=== PATIENT | male | born 1980 | race Caucasian/White ===

== ENCOUNTER 2025-02-09 21:10 | Inpatient (IN) ==
[2025-02-09 21:56] VITALS: BMI 45.6
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
[2025-02-09 22:26] LABS: EOSINOPHILS # (AUTO) 0.2 x10^3/uL (0.0-0.2); LYMPHOCYTES # (AUTO) 2.3 X10^3/uL (1.3-2.9); MEAN PLATELET VOLUME 7.6 fL (7.4-11.0); MONOCYTES # (AUTO) 0.9 x10^3/uL (0.3-0.8); WHITE BLOOD COUNT 8.7 X10^3/uL (3.6-10.0)
[2025-02-09] MEDS ORDERED: MERREM VIAL 1 G in NS 100 ML IV 100 ML IV SCH (22:27)
[2025-02-09 22:29] LABS: BASOPHILS # (AUTO) 0.4 X10^3/uL (0.0-0.1); BASOPHILS % (AUTO) 4.4 % (0.2-1.0); EOSINOPHILS % (AUTO) 2.3 % (0.9-2.9); HEMATOCRIT 43.2 % (42.0-54.0); HEMOGLOBIN 14.3 g/dL (13.5-18.0); LYMPHOCYTES % (AUTO) 26.4 % (21.0-51.0); MEAN CORPUSCULAR HEMOGLOBIN 29.2 pg (27.0-34.0); MEAN CORPUSCULAR VOLUME 88.7 fL (80.0-100.0); MONOCYTES % (AUTO) 9.8 % (0.0-13.0); NEUTROPHILS % (AUTO) 57.1 % (42.0-75.0); PLATELET COUNT 610 X10^3/uL (150.0-450.0); RED BLOOD COUNT 4.87 X10^6/uL (4.7-6.0); RED CELL DISTRIBUTION WIDTH 15.5 % (11.6-16.5)
[2025-02-09 22:36] LABS: ALANINE AMINOTRANSFERASE 41 Units/L (12-78); ALKALINE PHOSPHATASE 92 Units/L (46-116); ASPARTATE AMINO TRANSFERASE 20 Units/L (15-37); BLOOD UREA NITROGEN 9 mg/dL (7-18); CARBON DIOXIDE 30.5 mmol/L (21-32); CHLORIDE 102 mmol/L (98-107); COR CA(FOR HYPOALB) 9.8 mg/dL (8.5-10.1); CREATININE 1.17 mg/dL (0.70-1.30); GLUCOSE 100 mg/dL (65-99); POTASSIUM 4.2 mmol/L (3.5-5.1); SODIUM 140 mmol/L (136-145); TOTAL PROTEIN 7.3 g/dL (6.4-8.2); eGFR NON BLACK RACES > 60 (>60)
[2025-02-09 23:00] LABS: PLATELET MORPHOLOGY COMMENT NORMAL (NORMAL)
[2025-02-09] MEDS: XYLOCAINE 1 % (PLAIN) IJ ONE (23:18)
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
[2025-02-10] MEDS: VANCOMYCIN IV *PREMIX 1 G/200 ML BAG 1 G/200 ML PIGGYBACK IV ONE (00:50)
[2025-02-10] MEDS ORDERED: MERREM VIAL 1 G in NS 100 ML IV 100 ML IV SCH (03:17)
[2025-02-10] MEDS ORDERED: CONSULT PHARMACY - POTASSIUM & MAGNESIUM XX SCH (03:17)
[2025-02-10] MEDS ORDERED: PHARMACY CONSULT - VANCOMYCIN XX SCH (03:17)
[2025-02-10] MEDS ORDERED: VANCOMYCIN IV *PREMIX 1 G/200 ML BAG 1 G/200 ML PIGGYBACK IV ONE (04:30)
[2025-02-10] MEDS: XYLOCAINE 1 % (PLAIN) ONE (04:30)
[2025-02-10] MEDS: MERREM VIAL 1 G in NS 100 ML IV 100 ML IV SCH (05:18)
[2025-02-10] MEDS: NS 250 ML IV 250 ML IV ONE (05:19)
[2025-02-10 05:53] LABS: BASOPHILS # (AUTO) 0.1 X10^3/uL (0.0-0.1); BASOPHILS % (AUTO) 1.4 % (0.2-1.0); EOSINOPHILS # (AUTO) 0.2 x10^3/uL (0.0-0.2); EOSINOPHILS % (AUTO) 2.3 % (0.9-2.9); HEMATOCRIT 41.8 % (42.0-54.0); HEMOGLOBIN 13.4 g/dL (13.5-18.0); LYMPHOCYTES # (AUTO) 2.4 X10^3/uL (1.3-2.9); LYMPHOCYTES % (AUTO) 24.9 % (21.0-51.0); MEAN CORPUSCULAR HEMOGLOBIN 28.3 pg (27.0-34.0); MEAN CORPUSCULAR VOLUME 88.2 fL (80.0-100.0); MEAN PLATELET VOLUME 7.8 fL (7.4-11.0); MONOCYTES % (AUTO) 10.7 % (0.0-13.0); NEUTROPHILS # (AUTO) 5.8 x10^3/uL (2.2-4.8); NEUTROPHILS % (AUTO) 60.7 % (42.0-75.0); PLATELET COUNT 640 X10^3/uL (150.0-450.0); RED BLOOD COUNT 4.74 X10^6/uL (4.7-6.0); RED CELL DISTRIBUTION WIDTH 15.5 % (11.6-16.5); WHITE BLOOD COUNT 9.6 X10^3/uL (3.6-10.0)
[2025-02-10 06:08] LABS: ALANINE AMINOTRANSFERASE 36 Units/L (12-78); ALBUMIN 2.8 g/dL (3.4-5.0); ALKALINE PHOSPHATASE 83 Units/L (46-116); ASPARTATE AMINO TRANSFERASE 19 Units/L (15-37); BLOOD UREA NITROGEN 10 mg/dL (7-18); CALCIUM 8.9 mg/dL (8.5-10.1); CARBON DIOXIDE 29.1 mmol/L (21-32); CHLORIDE 103 mmol/L (98-107); COR CA(FOR HYPOALB) 9.9 mg/dL (8.5-10.1); CREATININE 1.01 mg/dL (0.70-1.30); GLUCOSE 95 mg/dL (65-99); POTASSIUM 4.5 mmol/L (3.5-5.1); SODIUM 139 mmol/L (136-145); TOTAL PROTEIN 6.7 g/dL (6.4-8.2); eGFR NON BLACK RACES > 60 (>60)
[2025-02-10] MEDS: VANCOMYCIN IV *PREMIX 1.5 G/300 ML BAG 1.5 G/300 ML PIGGYBACK IV SCH (08:28)
[2025-02-10] MEDS ORDERED: PHARMACY CONSULT - LOVENOX XX SCH (12:00)
[2025-02-10] MEDS: LOVENOX INJ 40 MG SYR SC SCH (12:16)
[2025-02-10] MEDS: NORCO 5/325 MG TAB PO PRN (13:12)
[2025-02-10 20:59] LABS: CREATININE 1.08 mg/dL (0.70-1.30); VANCOMYCIN,TROUGH 4.3 ug/mL (15-20)
[2025-02-11 05:26] LABS: BASOPHILS # (AUTO) 0.2 X10^3/uL (0.0-0.1); EOSINOPHILS # (AUTO) 0.3 x10^3/uL (0.0-0.2); EOSINOPHILS % (AUTO) 2.8 % (0.9-2.9); HEMOGLOBIN 13.6 g/dL (13.5-18.0); LYMPHOCYTES # (AUTO) 2.7 X10^3/uL (1.3-2.9); LYMPHOCYTES % (AUTO) 29.1 % (21.0-51.0); MEAN CORPUSCULAR HEMOGLOBIN 29.3 pg (27.0-34.0); MEAN CORPUSCULAR HGB CONC 33.2 g/dL (33.0-35.0); MEAN CORPUSCULAR VOLUME 88.3 fL (80.0-100.0); MEAN PLATELET VOLUME 7.6 fL (7.4-11.0); MONOCYTES # (AUTO) 1.2 x10^3/uL (0.3-0.8); MONOCYTES % (AUTO) 12.4 % (0.0-13.0); NEUTROPHILS # (AUTO) 5.1 x10^3/uL (2.2-4.8); NEUTROPHILS % (AUTO) 53.7 % (42.0-75.0); PLATELET COUNT 619 X10^3/uL (150.0-450.0); RED BLOOD COUNT 4.64 X10^6/uL (4.7-6.0); RED CELL DISTRIBUTION WIDTH 15.6 % (11.6-16.5); WHITE BLOOD COUNT 9.4 X10^3/uL (3.6-10.0)
[2025-02-11] MEDS: NS 250 ML IV 250 ML IV ONE (05:31)
[2025-02-11 05:41] LABS: ALANINE AMINOTRANSFERASE 32 Units/L (12-78); ALBUMIN 2.9 g/dL (3.4-5.0); ALKALINE PHOSPHATASE 93 Units/L (46-116); ASPARTATE AMINO TRANSFERASE 18 Units/L (15-37); BLOOD UREA NITROGEN 8 mg/dL (7-18); CALCIUM 8.7 mg/dL (8.5-10.1); CARBON DIOXIDE 29.7 mmol/L (21-32); CHLORIDE 104 mmol/L (98-107); COR CA(FOR HYPOALB) 9.6 mg/dL (8.5-10.1); GLUCOSE 92 mg/dL (65-99); MAGNESIUM 2.1 mg/dL (2.0-2.9); POTASSIUM 4.5 mmol/L (3.5-5.1); SODIUM 140 mmol/L (136-145); TOTAL PROTEIN 6.4 g/dL (6.4-8.2); eGFR NON BLACK RACES > 60 (>60)
--- NOTE | 2025-02-11 10:12 | NOTE.SOAP ---
Soap Note Note for Day of Date of Exam: 02/11/25 Subjective Data Subjective Data: Seen for daily rounds. No acute issues. Vitals are showing hypertension. Labs stable. Objective Data Objective Data: Morbidly obese male in no acute distress. Head NCAT with trachea midline. Hearing intact conversation. Lungs diminished but clear. Heart regular rate and rhythm. Bowel sounds present. Large open wound of the anterior right lower extremity. Assessment Assessment: 1. Chronic right lower extremity wound. 2. Morbid obesity 3. Benign essential hypertension Plan Plan: Start losartan, continue current antibiotics, recommend a calorie restricted diet.
--- NOTE | 2025-02-11 10:30 | DR.H&P ---
H&P History & Physical for Day of: H&P Date: 02/10/25 Chief Complaint Chief Complaint: right lower leg wound History of Present Illness History of Present Illness: Patient is a 44-year-old male with no past medical history presenting with a chronic wound has been present for past 2 to 3 months. He reports started off as a small scratch that has progressed to an ulceration. Denies fevers and chills. Labs/imaging: WBC 9.6, hemoglobin 13.4, platelets 640, sodium 139, potassium 4.5, creatinine 1.01, glucose 95, CRP 15.9, wo und/blood cultures pending. Lower extremity CT was obtained that revealed extensive soft tissue edema stranding with interspersed scattered areas of nonencapsulated linear strandy fluid. Skin thickening and cellulitis. Soft tissue ulceration. See report. Patient was admitted for right lower extremity cellulitis. He was started on IV antibiotics meropenem. Will order [place] for pain control. Will consult general surgery for further evaluation. Otherwise continue with current treatment plan. Continue closely monitor and follow-up labs/imaging. Past Surgical History Surgical History: Other Family History Family Medical History: Diabetes Mellitus and [place] Social History Does patient currently use any type of tobacco product: No Have you used tobacco products in the last 12 months: No Type of Tobacco Use: None Does any household member use tobacco: No Alcohol Use: None Drug Use: None Medications Home Medications: Home Medications Medication Instructions Recorded Confirmed Type buprenorphine HCl 8 mg sublingual 8 mg sublingual Q8H 02/10/25 02/10/25 History tablet Allergies Allergies Allergy/AdvReac Type Severity Reaction Status Date / Time No Known Allergies Allergy Verified 02/09/25 21:51 Labs 02/11/25 05:05 02/11/25 05:05 Labs: 02/09/25 22:00 Leg - Right Wound Gram Stain - Final 02/09/25 22:00 Leg - Right Wound Culture - Preliminary Laboratory WBC 9.4 X10^3/uL (3.6-10.0) 02/11/25 05:05 RBC 4.64 X10^6/uL (4.7-6.0) L 02/11/25 05:05 Hgb 13.6 g/dL (13.5-18.0) 02/11/25 05:05 Hct 41.0 % (42.0-54.0) L 02/11/25 05:05 MCV 88.3 fL (80.0-100.0) 02/11/25 05:05 MCH 29.3 pg (27.0-34.0) 02/11/25 05:05 MCHC 33.2 g/dL (33.0-35.0) 02/11/25 05:05 RDW 15.6 % (11.6-16.5) 02/11/25 05:05 Plt Count 619 X10^3/uL (150.0-450.0) H 02/11/25 05:05 Plt Count Comment Increased (ADEQUATE) 02/09/25 22:10 MPV 7.6 fL (7.4-11.0) 02/11/25 05:05 Neut % (Auto) 53.7 % (42.0-75.0) 02/11/25 05:05 Lymph % (Auto) 29.1 % (21.0-51.0) 02/11/25 05:05 [place] % (Auto) 12.4 % (0.0-13.0) 02/11/25 05:05 Eos % (Auto) 2.8 % (0.9-2.9) 02/11/25 05:05 Baso % (Auto) 2.0 % (0.2-1.0) H 02/11/25 05:05 Neut # (Auto) 5.1 x10^3/uL (2.2-4.8) H 02/11/25 05:05 Lymph # (Auto) 2.7 X10^3/uL (1.3-2.9) 02/11/25 05:05 [place] # (Auto) 1.2 x10^3/uL (0.3-0.8) H 02/11/25 05:05 Eos # (Auto) 0.3 x10^3/uL (0.0-0.2) H 02/11/25 05:05 Baso # (Auto) 0.2 X10^3/uL (0.0-0.1) H 02/11/25 05:05 Absolute Nucleated RBC 0.1 /100WBC 02/11/25 05:05 Total Counted 100 02/09/25 22:10 Neutrophils % (Manual) 66 % (39-76) 02/09/25 22:10 Lymphocytes % (Manual) 24 % (13-43) 02/09/25 22:10 Monocytes % (Manual) 8 % (4-9) 02/09/25 22:10 Eosinophils % (Manual) 2 % (0-6) 02/09/25 22:10 Plt Morphology Comment Normal (NORMAL) 02/09/25 22:10 RBC Morphology Normal (NORMAL) 02/09/25 22:10 Sodium 140 mmol/L (136-145) 02/11/25 05:05 Corrected Sodium TNP 02/11/25 05:05 Potassium 4.5 mmol/L (3.5-5.1) 02/11/25 05:05 Chloride 104 mmol/L (98-107) 02/11/25 05:05 Carbon Dioxide 29.7 mmol/L (21-32) 02/11/25 05:05 BUN 8 mg/dL (7-18) 02/11/25 05:05 Creatinine 1.00 mg/dL (0.70-1.30) 02/11/25 05:05 Est GFR (MDRD) Af Amer > 60 (>60) 02/11/25 05:05 Est GFR (MDRD) Non-Af > 60 (>60) 02/11/25 05:05 Glucose 92 mg/dL (65-99) 02/11/25 05:05 Calcium 8.7 mg/dL (8.5-10.1) 02/11/25 05:05 Corrected Calcium 9.6 mg/dL (8.5-10.1) 02/11/25 05:05 Magnesium 2.1 mg/dL (2.0-2.9) 02/11/25 05:05 Total Bilirubin 0.20 mg/dL (0.2-1.0) 02/11/25 05:05 AST 18 Units/L (15-37) 02/11/25 05:05 ALT 32 Units/L (12-78) 02/11/25 05:05 Alkaline Phosphatase 93 Units/L (46-116) 02/11/25 05:05 C-Reactive Protein 15.90 mg/L (0-3.0) H 02/09/25 22:10 Total Protein 6.4 g/dL (6.4-8.2) 02/11/25 05:05 Albumin 2.9 g/dL (3.4-5.0) L 02/11/25 05:05 Globulin 3.5 g/dL (2.5-4.5) 02/11/25 05:05 Albumin/Globulin Ratio 0.8 Ratio (1.1-2.1) L 02/11/25 05:05 Vancomycin Trough 4.3 ug/mL (15-20) L 02/10/25 20:35 Review of Systems Constitutional: No Symptoms Reported Eyes: No Symptoms Reported ENT: No Symptoms Reported Respiratory: No Symptoms Reported Cardiovascular: No Symptoms Reported Gastrointestinal: No Symptoms Reported Genitourinary: No Symptoms Reported Musculoskeletal: No Symptoms Reported Skin: Wound (RLE) Neurological: No Symptoms Reported Physical Exam Vital Signs: Vital Signs Temperature 98.3 F Temperature 98.3 F Pulse Rate [Left Radial] 88 Pulse Rate [Left Radial] 88 Respiratory Rate 19 Respiratory Rate 19 Blood Pressure [Right Arm] 160/80 Blood Pressure [Right Arm] 160/80 O2 Sat by Pulse Oximetry 100 O2 Sat by Pulse Oximetry 100 Oriented: Normal Eyes: Normal Ear: Normal Nose: Normal Throat: Normal Respiratory: Clear Throughout Cardiovascular: Normal : Normal Auscultation: Bowel Sounds: Normal Palpation: Normal Tenderness: Normal Skin: Wound (RLE cellulitis and tissue ulceration) Musculoskeletal: Normal Psychiatric: Normal Mood Description: Calm and Appropriate Affect: Normal Speech Pattern: Clear and Appropriate Assessment/Plan (1) Cellulitis: Qualifiers: Site of cellulitis of extremity: lower extremity Laterality: right Site of cellulitis: extremity Qualified Code(s): L03.115 - Cellulitis of right lower limb Status: Acute Plan: IV meropenem Wound/blood culture pending Consult general surgery Review H&P Reviewed: Yes Patient was examined?: Yes
[2025-02-11] MEDS: COZAAR PO SCH (11:41)
[2025-02-12] MEDS: PHARMACY COMMENT IV SCH (04:04)
[2025-02-12] MEDS: NS 250 ML IV 250 ML IV ONE (06:17)
[2025-02-12 08:34] LABS: BASOPHILS # (AUTO) 0.2 X10^3/uL (0.0-0.1); LYMPHOCYTES # (AUTO) 2.2 X10^3/uL (1.3-2.9); NEUTROPHILS # (AUTO) 5.8 x10^3/uL (2.2-4.8)
[2025-02-12 08:37] LABS: EOSINOPHILS # (AUTO) 0.3 x10^3/uL (0.0-0.2); MEAN PLATELET VOLUME 7.7 fL (7.4-11.0); MONOCYTES # (AUTO) 1.1 x10^3/uL (0.3-0.8)
[2025-02-12 08:43] LABS: ALANINE AMINOTRANSFERASE 38 Units/L (12-78); ALBUMIN 3.2 g/dL (3.4-5.0); ALKALINE PHOSPHATASE 99 Units/L (46-116); ASPARTATE AMINO TRANSFERASE 24 Units/L (15-37); BLOOD UREA NITROGEN 8 mg/dL (7-18); CALCIUM 8.9 mg/dL (8.5-10.1); CHLORIDE 102 mmol/L (98-107); COR CA(FOR HYPOALB) 9.5 mg/dL (8.5-10.1); CREATININE 1.02 mg/dL (0.70-1.30); GLUCOSE 82 mg/dL (65-99); POTASSIUM 4.2 mmol/L (3.5-5.1); SODIUM 140 mmol/L (136-145); TOTAL PROTEIN 7.6 g/dL (6.4-8.2); eGFR NON BLACK RACES > 60 (>60)
[2025-02-12 08:44] LABS: BASOPHILS % (AUTO) 2.4 % (0.2-1.0); EOSINOPHILS % (AUTO) 3.2 % (0.9-2.9); HEMATOCRIT 44.3 % (42.0-54.0); HEMOGLOBIN 14.7 g/dL (13.5-18.0); LYMPHOCYTES % (AUTO) 22.9 % (21.0-51.0); MEAN CORPUSCULAR HEMOGLOBIN 29.4 pg (27.0-34.0); MEAN CORPUSCULAR HGB CONC 33.3 g/dL (33.0-35.0); MEAN CORPUSCULAR VOLUME 88.2 fL (80.0-100.0); NEUTROPHILS % (AUTO) 60.5 % (42.0-75.0); PLATELET COUNT 597 X10^3/uL (150.0-450.0); RED BLOOD COUNT 5.02 X10^6/uL (4.7-6.0); RED CELL DISTRIBUTION WIDTH 15.9 % (11.6-16.5); WHITE BLOOD COUNT 9.7 X10^3/uL (3.6-10.0)
[2025-02-12 08:52] LABS: VANCOMYCIN,TROUGH 7.1 ug/mL (15-20)
[2025-02-12] MEDS: BACTROBAN TOPICAL OINT TOP SCH (09:26)
[2025-02-12] MEDS: HYDROGEN PEROXIDE 3% EXT SCH (09:27)
--- NOTE | 2025-02-12 13:16 | DR.OPNOTE ---
OP NOTE Pre-Op Diagnosis: cellulitis , open wound right leg Post-Op Diagnosis: same Procedure Date Date Of Procedure: 02/09/25 Procedure: PROCEDURE: PROCEDURE: Left subclavian vein triple-lumen central venous catheter placed NARRATIVE: The patient was placed in Trendelenburg position and the left neck and chest prepped and draped in sterile fashion. Timeout for the procedure obtained. Skin overlying the left clavicle infiltrated with 1 percent Xyl ocaine. 16-gauge needle used to puncture the left subclavian vein with aspiration of blood. 0.035 inch guidewire placed. Incision made over the guidewire with a #11 knife blade and the dilator placed over the guidewire into the left subclavian vein. Dilator removed and the catheter placed to 18 cm. Wire removed. The catheter flushed with heparinized saline ,all 3 ports. The catheter secured to the skin with interrupted silk sutures and antimicrobial disc and dressing applied. Postprocedure chest x-ray showed good placement with no pneumothorax. Type of Anesthesia: Local (1 % Xylocaine ) Findings: as above Type of Fluids Used:: Normal Saline EBL: minimal Complications:: none Needle/Sponge Count:: orrect Disposition/Condition: Pt. tolerated procedure without difficulty. Patient admitted to the floor in stable condition.
[2025-02-12] MEDS: LEVAQUIN PREMIX IV 500 MG 500 MG/100 ML BAG IV SCH (15:28)
--- NOTE | 2025-02-12 15:37 | NOTE.SOAP ---
Soap Note Note for Day of Date of Exam: 02/12/25 Subjective Data Subjective Data: Wound culture growing Escherichia Coli & Serratia Fonticola. No overnight events per nursing. No new complaints today per patient Objective Data Objective Data: Morbidly obese male in no acute distress. Head NCAT with trachea midline. Hearing intact conversation. Lungs diminished but clear. Heart regular rate and rhythm. Bowel sounds present. Large open wound of the anterior right lower extremity. Assessment Assessment: 1. Chronic right lower extremity wound. Escherichia Coli & Serratia Fonticola sensitive to Levaquin (last wound culture with Pseudomonas and staph, both sensitive to Levaquin then, too). 2. Morbid obesity 3. Benign essential hypertension Plan Plan: Switching to IV Levaquin which would cover his last culture and his current culture. Monitor for changes. Continue hydralazine and clonidine as needed for hypertensive urgency but will give losartan some time to work
[2025-02-12] MEDS: CATAPRES TAB 0.1 MG PO ONE (21:31)
--- NOTE | 2025-02-12 21:36 | EKG ---
Test Reason : HTN protocol Blood Pressure : */* mmHG Vent. Rate : 93 BPM Atrial Rate : 93 BPM P-R Int : 202 ms QRS Dur : 102 ms QT Int : 320 ms P-R-T Axes : 51 8 89 degrees QTc Int : 397 ms Normal sinus rhythm Normal ECG No previous ECGs available Confirmed by Dawson Dowling MD ([id number]) on 02/13/2025 7:30:38 AM Referred By: Confirmed By: Dawson Dowling MD
[2025-02-13 05:06] LABS: BASOPHILS % (AUTO) 0.2 % (0.2-1.0); EOSINOPHILS # (AUTO) 0.2 x10^3/uL (0.0-0.2); EOSINOPHILS % (AUTO) 2.6 % (0.9-2.9); HEMATOCRIT 41.7 % (42.0-54.0); HEMOGLOBIN 13.5 g/dL (13.5-18.0); LYMPHOCYTES # (AUTO) 2.4 X10^3/uL (1.3-2.9); LYMPHOCYTES % (AUTO) 26.1 % (21.0-51.0); MEAN CORPUSCULAR HEMOGLOBIN 28.5 pg (27.0-34.0); MEAN CORPUSCULAR HGB CONC 32.3 g/dL (33.0-35.0); MEAN CORPUSCULAR VOLUME 88.1 fL (80.0-100.0); MEAN PLATELET VOLUME 7.7 fL (7.4-11.0); MONOCYTES # (AUTO) 1.3 x10^3/uL (0.3-0.8); NEUTROPHILS # (AUTO) 5.2 x10^3/uL (2.2-4.8); NEUTROPHILS % (AUTO) 57.1 % (42.0-75.0); PLATELET COUNT 540 X10^3/uL (150.0-450.0); RED BLOOD COUNT 4.74 X10^6/uL (4.7-6.0); RED CELL DISTRIBUTION WIDTH 15.7 % (11.6-16.5); WHITE BLOOD COUNT 9.2 X10^3/uL (3.6-10.0)
[2025-02-13 05:22] LABS: ALANINE AMINOTRANSFERASE 41 Units/L (12-78); ALBUMIN 2.8 g/dL (3.4-5.0); ALKALINE PHOSPHATASE 85 Units/L (46-116); ASPARTATE AMINO TRANSFERASE 22 Units/L (15-37); BLOOD UREA NITROGEN 9 mg/dL (7-18); CALCIUM 8.6 mg/dL (8.5-10.1); CARBON DIOXIDE 31.7 mmol/L (21-32); CHLORIDE 103 mmol/L (98-107); COR CA(FOR HYPOALB) 9.6 mg/dL (8.5-10.1); CREATININE 0.85 mg/dL (0.70-1.30); GLUCOSE 90 mg/dL (65-99); POTASSIUM 4.1 mmol/L (3.5-5.1); SODIUM 139 mmol/L (136-145); TOTAL PROTEIN 6.7 g/dL (6.4-8.2); eGFR NON BLACK RACES > 60 (>60)
[2025-02-13] MEDS: CATAPRES TAB 0.1 MG ONE (07:10)
--- NOTE | 2025-02-13 09:21 | PCM.PROG ---
Progress Note Progress Note for Day of Date of Exam: 02/13/25 Subjective Subjective: Patient seen at bedside, no acute events overnight. He is currently admitted for RLE wound. Dr Perez has also been consulted. No surgical intervention needed at this time. He remains on IV antibiotics. He states redness and swelling has improved a little bit. Labs/imaging reviewed: -WBC 9.2 Hgb 13.5 K 4.1 Cr 0.85 -Blood Cx negative -Wound Cx: E.coli and serratia Plan: continue IV levaquin, continue wound care. Follow surgery recommendations. DC Vanc. Continue pain control. Continue current medications. Replace electrolytes as per protocol. Monitor AM labs/imaging. Past Medical Family Social History Allergies: Allergies No Known Allergies Allergy (Verified 02/09/25 21:51) Vital Signs and I&O's Vital Signs: Vital Signs Temperature 97.6 F Temperature 98.0 F Pulse Rate [Right Brachial] 80 Pulse Rate [Right Brachial] 102 Respiratory Rate 18 Respiratory Rate 20 Blood Pressure [Left Arm] 133/86 Blood Pressure [Right Arm] 143/75 O2 Sat by Pulse Oximetry 100 O2 Sat by Pulse Oximetry 98 Intake and Output: Intake & Output 02/10/25 02/11/25 02/12/25 02/13/25 23:59 23:59 23:59 23:59 Intake Total 1655 / 1655 613 / 613 3939 / 3939 Balance 1655 / 1655 613 / 613 3939 / 3939 Physical Exam Oriented: Normal Eyes: Normal Ear: Normal Nose: Normal Throat: Normal Respiratory: Normal Cardiovascular: Normal Auscultation: Bowel Sounds: Normal Palpation: Normal Tenderness: Normal Skin: Wound (RLE cellulitis and tissue ulceration) Musculoskeletal: Normal Psychiatric: Normal Mood Description: Calm and Appropriate Affect: Normal Speech Pattern: Clear and Appropriate Laboratory and Diagnostics 02/13/25 04:45 02/13/25 04:45 Labs: 02/09/25 22:00 Leg - Right Wound Gram Stain - Final 02/09/25 22:00 Leg - Right Wound Culture - Final Escherichia Coli Serratia Fonticola 02/09/25 22:10 Blood Blood Culture - Preliminary 02/09/25 22:02 Blood Blood Culture - Preliminary Laboratory WBC 9.2 X10^3/uL (3.6-10.0) 02/13/25 04:45 RBC 4.74 X10^6/uL (4.7-6.0) 02/13/25 04:45 Hgb 13.5 g/dL (13.5-18.0) 02/13/25 04:45 Hct 41.7 % (42.0-54.0) L 02/13/25 04:45 MCV 88.1 fL (80.0-100.0) 02/13/25 04:45 MCH 28.5 pg (27.0-34.0) 02/13/25 04:45 MCHC 32.3 g/dL (33.0-35.0) L 02/13/25 04:45 RDW 15.7 % (11.6-16.5) 02/13/25 04:45 Plt Count 540 X10^3/uL (150.0-450.0) H 02/13/25 04:45 Plt Count Comment Increased (ADEQUATE) 02/09/25 22:10 MPV 7.7 fL (7.4-11.0) 02/13/25 04:45 Neut % (Auto) 57.1 % (42.0-75.0) 02/13/25 04:45 Lymph % (Auto) 26.1 % (21.0-51.0) 02/13/25 04:45 [place] % (Auto) 14.0 % (0.0-13.0) H 02/13/25 04:45 Eos % (Auto) 2.6 % (0.9-2.9) 02/13/25 04:45 Baso % (Auto) 0.2 % (0.2-1.0) 02/13/25 04:45 Neut # (Auto) 5.2 x10^3/uL (2.2-4.8) H 02/13/25 04:45 Lymph # (Auto) 2.4 X10^3/uL (1.3-2.9) 02/13/25 04:45 [place] # (Auto) 1.3 x10^3/uL (0.3-0.8) H 02/13/25 04:45 Eos # (Auto) 0.2 x10^3/uL (0.0-0.2) 02/13/25 04:45 Baso # (Auto) 0.0 X10^3/uL (0.0-0.1) 02/13/25 04:45 Absolute Nucleated RBC 0.1 /100WBC 02/13/25 04:45 Total Counted 100 02/09/25 22:10 Neutrophils % (Manual) 66 % (39-76) 02/09/25 22:10 Lymphocytes % (Manual) 24 % (13-43) 02/09/25 22:10 Monocytes % (Manual) 8 % (4-9) 02/09/25 22:10 Eosinophils % (Manual) 2 % (0-6) 02/09/25 22:10 Plt Morphology Comment Normal (NORMAL) 02/09/25 22:10 RBC Morphology Normal (NORMAL) 02/09/25 22:10 Sodium 139 mmol/L (136-145) 02/13/25 04:45 Corrected Sodium TNP 02/13/25 04:45 Potassium 4.1 mmol/L (3.5-5.1) 02/13/25 04:45 Chloride 103 mmol/L (98-107) 02/13/25 04:45 Carbon Dioxide 31.7 mmol/L (21-32) 02/13/25 04:45 BUN 9 mg/dL (7-18) 02/13/25 04:45 Creatinine 0.85 mg/dL (0.70-1.30) 02/13/25 04:45 Est GFR (MDRD) Af Amer > 60 (>60) 02/13/25 04:45 Est GFR (MDRD) Non-Af > 60 (>60) 02/13/25 04:45 Glucose 90 mg/dL (65-99) 02/13/25 04:45 POC Glucose (mg/dL) 134 mg/dL (65-99) H 02/12/25 17:42 Calcium 8.6 mg/dL (8.5-10.1) 02/13/25 04:45 Corrected Calcium 9.6 mg/dL (8.5-10.1) 02/13/25 04:45 Magnesium 2.1 mg/dL (2.0-2.9) 02/11/25 05:05 Total Bilirubin 0.30 mg/dL (0.2-1.0) 02/13/25 04:45 AST 22 Units/L (15-37) 02/13/25 04:45 ALT 41 Units/L (12-78) 02/13/25 04:45 Alkaline Phosphatase 85 Units/L (46-116) 02/13/25 04:45 C-Reactive Protein 15.90 mg/L (0-3.0) H 02/09/25 22:10 Total Protein 6.7 g/dL (6.4-8.2) 02/13/25 04:45 Albumin 2.8 g/dL (3.4-5.0) L 02/13/25 04:45 Globulin 3.9 g/dL (2.5-4.5) 02/13/25 04:45 Albumin/Globulin Ratio 0.7 Ratio (1.1-2.1) L 02/13/25 04:45 Vancomycin Trough 7.1 ug/mL (15-20) L 02/12/25 08:20 Plan (1) Cellulitis: Status: Acute Qualifiers: Laterality: right Site of cellulitis: extremity Site of cellulitis of extremity: lower extremity Qualified Code(s): L03.115 - Cellulitis of right lower limb (2) Leg wound, right: Status: Acute Qualifiers: Encounter type: sequela Qualified Code(s): S81.801S - Unspecified open wound, right lower leg, sequela (3) HTN (hypertension): Status: Acute Qualifiers: Hypertension type: primary hypertension Qualified Code(s): I10 - Essential (primary) hypertension
[2025-02-13] MEDS ORDERED: NORCO 5/325 MG TAB PO PRN (14:09)
[2025-02-13] MEDS: BACTROBAN TOPICAL OINT TOP SCH (21:51)
[2025-02-13] MEDS: HYDROGEN PEROXIDE 3% EXT SCH (21:52)
[2025-02-14 06:03] LABS: BASOPHILS # (AUTO) 0.1 X10^3/uL (0.0-0.1); BASOPHILS % (AUTO) 1.3 % (0.2-1.0); EOSINOPHILS # (AUTO) 0.2 x10^3/uL (0.0-0.2); HEMATOCRIT 42.6 % (42.0-54.0); HEMOGLOBIN 14.2 g/dL (13.5-18.0); LYMPHOCYTES # (AUTO) 2.4 X10^3/uL (1.3-2.9); LYMPHOCYTES % (AUTO) 27.1 % (21.0-51.0); MEAN CORPUSCULAR HEMOGLOBIN 29.3 pg (27.0-34.0); MEAN CORPUSCULAR HGB CONC 33.3 g/dL (33.0-35.0); MEAN CORPUSCULAR VOLUME 87.9 fL (80.0-100.0); MEAN PLATELET VOLUME 7.9 fL (7.4-11.0); MONOCYTES # (AUTO) 0.9 x10^3/uL (0.3-0.8); MONOCYTES % (AUTO) 10.3 % (0.0-13.0); NEUTROPHILS # (AUTO) 5.2 x10^3/uL (2.2-4.8); NEUTROPHILS % (AUTO) 59.3 % (42.0-75.0); PLATELET COUNT 587 X10^3/uL (150.0-450.0); RED BLOOD COUNT 4.84 X10^6/uL (4.7-6.0); RED CELL DISTRIBUTION WIDTH 15.5 % (11.6-16.5); WHITE BLOOD COUNT 8.7 X10^3/uL (3.6-10.0)
[2025-02-14 06:16] LABS: ALANINE AMINOTRANSFERASE 50 Units/L (12-78); ALBUMIN 3.2 g/dL (3.4-5.0); ALKALINE PHOSPHATASE 92 Units/L (46-116); ASPARTATE AMINO TRANSFERASE 27 Units/L (15-37); BLOOD UREA NITROGEN 11 mg/dL (7-18); CALCIUM 8.9 mg/dL (8.5-10.1); CARBON DIOXIDE 28.7 mmol/L (21-32); CHLORIDE 102 mmol/L (98-107); COR CA(FOR HYPOALB) 9.5 mg/dL (8.5-10.1); CREATININE 0.91 mg/dL (0.70-1.30); GLUCOSE 87 mg/dL (65-99); POTASSIUM 4.2 mmol/L (3.5-5.1); SODIUM 138 mmol/L (136-145); TOTAL PROTEIN 7.4 g/dL (6.4-8.2); eGFR NON BLACK RACES > 60 (>60)
[2025-02-14] MEDS: LEVAQUIN PREMIX IV 500 MG 500 MG/100 ML BAG IV SCH (08:44)
[2025-02-14] MEDS: LOVENOX INJ 40 MG SYR SC SCH (08:44)
[2025-02-14] MEDS: COZAAR PO SCH (08:44)
[2025-02-14] MEDS: LASIX IVP PRN (11:43)
[2025-02-14 12:00] VITALS: BP 155/83; PULSE 81; RESP 17; TEMP 97.6; O2SAT 98
--- NOTE | 2025-02-14 12:41 | VAS ---
EXAM:LOWER EXT VENOUS, BILATERALHISTORY:BLE EDEMA, RLE ULCER;COMPARISON:None available.TECHNIQUE:Multiple martinez scale and color flow Doppler images of the deep venous system were obtained of the right and left lower extremity.FINDINGS:The deep venous system of the right and left lower extremities were evaluated from the level of the common femoral vein through the popliteal vein. Normal color flow and augmentation can be observed. In addition, normal compression is seen throughout the deep venous system.IMPRESSION:Negative for DVT.THIS IS AN ELECTRONICALLY VERIFIED FINAL REPORT02/14/2025 12:38 PM - Electronically signed by Nadir Dowell MD
== END 2025-02-14 15:35 | disposition home or self-care (01) | DRG 603 ==
LOC: ER 21:10 → MED/SURG 21:10 → OBSVTOIN 02-10 02:17 → MED/SURG 02-10 03:20
PROVIDERS: ADMIT Internal Medicine; ATTEND Internal Medicine
DX: B96.89 Other specified bacterial agents as the cause of diseases classified elsewhere; I10 Essential (primary) hypertension; B96.29 Other Escherichia coli [E. coli] as the cause of diseases classified elsewhere; R79.82 Elevated C-reactive protein (CRP); E66.01 Morbid (severe) obesity due to excess calories; L03.115 Cellulitis of right lower limb; S81.801D Unspecified open wound, right lower leg, subsequent encounter; Z29.89 Encounter for other specified prophylactic measures; R60.0 Localized edema; Z16.19 Resistance to other specified beta lactam antibiotics; Z16.11 Resistance to penicillins; Z68.42 Body mass index [BMI] 45.0-49.9, adult; X58.XXXD Exposure to other specified factors, subsequent encounter